=== PATIENT | male | born 1985 | race Caucasian/White ===

== ENCOUNTER 2019-01-21 07:14 | Emergency (ER) | payer SELFPAY, MEDICAID ==
[2019-01-21] MEDS: DIPHENHYDRAMINE 25 MG CAP PO (07:50)
[2019-01-21] MEDS: DEXAMETHASONE 10 MG/ML 1 ML INJ IM (07:50)
== END 2019-01-21 08:22 | disposition home or self-care (01) ==
LOC: FTE 08:22
DX: L50.0 Allergic urticaria (principal)
CPT/HCPCS: 96372; 99284-25

== ENCOUNTER 2019-01-24 19:18 | Emergency (ER) | payer SELFPAY ==
[2019-01-24] MEDS: DEXAMETHASONE 10 MG/ML 1 ML INJ IM (20:10)
[2019-01-24] MEDS: RANITIDINE 150 MG TAB PO (20:13)
== END 2019-01-24 20:33 | disposition home or self-care (01) ==
LOC: FTE 19:18
DX: T78.40XD Allergy, unspecified, subsequent encounter (principal)
CPT/HCPCS: 99283